=== PATIENT | female | born 1970 | race Caucasian/White ===

== ENCOUNTER → 2019-11-12 | Outpatient (CLI) | payer OTHER ==
--- NOTE | 2019-11-12 12:21 | KCIC ---
MRI left forearm without contrast dated 11/12/2019. No comparison available. CLINICAL INDICATION: History of ulnar lesion seen on prior plain films in 2012. TECHNIQUE: T1 and T2-weighted imaging performed in 3 planes to include the mid and distal forearm. No contrast administered. FINDINGS: There is a small linear T2 hyperintense focus within the distal one third shaft ulna that is eccentric in location along the medial side. This abuts the cortex and results in mild endosteal scalloping and measures about 1.4 cm in length. There is no cortical destruction or periosteal reaction. No edema in the surrounding bone marrow. There are also cystic changes of the distal pole of the scaphoid bone and the ulnar side of the lunate bone with small cyst involving the distal aspect of the triquetrum. Mild hypertrophic change of the first carpometacarpal joint and scaphotrapezial joint. No radiocarpal joint effusion. The TFC complex is grossly intact. Small amount of fluid at the distal radioulnar joint. Marrow signal is otherwise homogeneous. No bone marrow edema. Bony alignment is anatomic. IMPRESSION: 1. 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 No aggressive features at this time. Recommend correlation with prior plain film radiographs to assess for interval change. 2. Mild nonspecific cystic foci within the carpal bones. 3. No acute bony or soft tissue abnormality. Electronically signed by: Malik Mtz MD (11/12/2019 12:18 PM) [id number]
== END | disposition home or self-care (01) ==
LOC: KCIC MRI 10:39
PROVIDERS: ATTEND Family Medicine
DX: M89.342 Hypertrophy of bone, left hand (principal); M89.8X3 Other specified disorders of bone, forearm
CPT/HCPCS: 73218

== ENCOUNTER → 2021-05-15 | Outpatient (CLI) | payer OTHER ==
--- NOTE | 2021-05-15 13:54 | KCIC ---
Examination: MRI left wrist without contrast HISTORY: History of left wrist pain, ganglion COMPARISON: None available Technique: Multiplanar, multisequence MR imaging of the left wrist without contrast FINDINGS: The alignment of the carpal bones grossly appears unremarkable. The scapholunate, lunotriquetral liga ment appears intact. There is a 5 mm cystic structure identified distal aspect of the scaphoid probab ly degenerative cyst. Small cystic changes identified in the proximal portion of the lunate medially likely degenerative changes with mild surrounding trabecular edema. The triangular fibrocartilage com plex appears intact. The flexor tendons appear intact. Mild increased T2 signal identified in the extensor carpi ulnaris t endon likely mild tendinosis. The median nerve and ulnar nerve grossly appears unremarkable. IMPRESSION: 1. 5 mm cystic structure identified in the distal aspect of the scaphoid probably degenerative cyst. 2. Mild increase in cystic changes identified in the proximal portion of the lunate medially likely degenerative changes with mild surrounding trabecular edema. 3. Mild tendinosis extensor carpi ulnaris tendon. Electronically signed by: Blayne Dawkins MD (05/15/2021 1:52 PM) [id number]
== END ==
LOC: KCIC MRI 12:28
PROVIDERS: ATTEND Physician Assistant
DX: M67.432 Ganglion, left wrist (principal); M25.832 Other specified joint disorders, left wrist
CPT/HCPCS: 73221

== ENCOUNTER → 2021-05-29 | Outpatient (CLI) | payer OTHER ==
--- NOTE | 2021-05-29 13:21 | KCIC ---
Examination: MRI of the right shoulder without contrast HISTORY: History of right shoulder pain COMPARISON: None available Technique: Multiplanar, multisequence MR imaging of the right shoulder performed without contrast FINDINGS: The long head of the biceps tendon within the bicipital groove. The attachment of the long head the biceps tendon to the superior labral anchor grossly appears intact. The alignment of the subscapulari s tendon, supraspinatus, infraspinatus tendons grossly appears intact. Mild increased signal identifi ed in the rotator cuff likely mild tendinosis. The visualized labrum grossly appears unremarkable. Th e muscle bulk grossly appears unremarkable. The acromion is type II. The inferior aspect of the acrom ion abuts the superior aspect of the conjoined portion of the supraspinatus and infraspinatus tendons . Fat is identified in the rotator interval. IMPRESSION: 1. Mild rotator cuff tendinosis. 2. The inferior aspect of the acromion abuts the conjoined portion of the supraspinatus, infraspinous tendons. Correlate for impingement. Electronically signed by: Blayne Dawkins MD (05/29/2021 1:19 PM) [id number]
== END ==
LOC: KCIC MRI 10:39
PROVIDERS: ATTEND Family Medicine
DX: M25.811 Other specified joint disorders, right shoulder (principal)
CPT/HCPCS: 73221